=== PATIENT | male | born 1950 | race Caucasian/White ===

== ENCOUNTER → 2016-03-17 | Outpatient (CLI) | payer MEDICARE ==
--- NOTE | 2016-03-17 08:19 | RAD ---
EXAM DESCRIPTION: Right shoulder, two views CLINICAL HISTORY: SHOULDER PAIN. FINDINGS/IMPRESSION: Internal rotation and axillary views shows moderate osteoarthritis of the acromioclavicular joint without separation No advanced osteoarthritis or focal osteochondral lesion of the glenohumeral joint. No fracture or dislocation Normal mineralization. Visualized right lung is clear Electronically signed by: Laron Reddy MD 03/17/2016 08:17
--- NOTE | 2016-05-08 10:47 | RAD ---
EXAM DESCRIPTION: Left shoulder, two views CLINICAL HISTORY: SHOULDER PAIN. FINDINGS/IMPRESSION: Mild acromioclavicular osteoarthritis without separation. Joint space is about 5 mm No advanced glenohumeral osteoarthritis or focal osteochondral lesion. No fracture. Visualized left lung is clear Electronically signed by: Laron Reddy MD 03/17/2016 08:19
== END ==
LOC: RAD 07:36
PROVIDERS: ATTEND Orthopaedic Surgery
DX: M19.012 Primary osteoarthritis, left shoulder (principal); M19.011 Primary osteoarthritis, right shoulder

== ENCOUNTER 2016-05-28 05:51 | Day surgery (SDC) | payer MEDICARE ==
[2016-05-28] MEDS ORDERED: LACTATED RINGERS 1,000 ML ONE (06:23)
[2016-05-28] MEDS ORDERED: PROPOFOL 200 MG/20 ML VIAL IV ONE (07:00)
--- NOTE | 2016-05-28 10:31 | OP ---
DATE OF PROCEDURE: 05/28/16 PREOPERATIVE DIAGNOSIS: 1. History of polyps. 2. Epigastric pain. 3. Heartburn. 4. History of Helicobacter pylori. POSTOPERATIVE DIAGNOSIS: 1. Esophagitis. 2. Gastritis. 3. Diverticulosis. 4. Internal hemorrhoids. 5. Rectal polyp. PROCEDURE: 1. Esophagogastroduodenoscopy plus biopsy. 2. Colonoscopy plus polypectomy. SURGEON: Isauro Rodriguez MD. COMPLICATIONS: None apparent. BLOOD LOSS: None. MEDICATIONS: Monitored anesthesia care. DESCRIPTION OF PROCEDURE: Informed consent was obtained prior to sedation. The preprocedure cardiopulmonary assessment was satisfactory. The patient was placed in the left lateral decubitus position and was sedated. The tip of the Olympus esophagogastroduodenoscope was inserted in the oropharynx and guided under direct visualization through the cricopharyngeus into the esophageal lumen. The esophagus was remarkable for distal esophagitis secondary to reflux. Biopsies were obtained. It was grade B esophagitis. The stomach was examined with direct and retroflexed views. The antrum, body, fundus, cardia and incisura were closely examined. There was some mild antral gastritis. Biopsies were obtained. We will be checking him for H. pylori, which he has evidently had in the past. There are no ulcers in the stomach. The duodenum was examined down to the third portion and there was some minimal bulbar duodenitis. The scope was then removed from the patient. The patient rotated 180 degrees. A digital rectal exam was unremarkable. The tip of the Olympus colonoscope was inserted in the rectum and guided over to the cecum. The cecum was identified by locating the ileocecal valve and appendiceal orifice. The mucosa of the cecum, ascending colon, hepatic flexure, transverse colon, splenic flexure, descending colon and sigmoid colon was closely examined. Direct and retroflexed views of the rectum were obtained. The prep was good. He has internal hemorrhoids. He has sigmoid diverticulosis. He had a 3 mm sessile polyp in the rectum that was removed with a cold snare and recovered. Otherwise , colonoscopy was unremarkable. RECOMMENDATIONS: 1. Followup biopsy and pathology results. 2. With his esophagitis, I think he should be on a daily proton pump inhibitor. 3. Followup with me in six months. #[id number] cc: Errol Polk MD [facility]ITALChad
[2016-05-28 11:26] VITALS: BP 146/92; TEMP 97.3; O2SAT 98
== END 2016-05-28 11:20 | disposition home or self-care (01) ==
LOC: AMB 05:51
PROVIDERS: ATTEND Internal Medicine Gastroenterology
DX: K92.1 Melena (principal); K62.1 Rectal polyp; K57.30 Diverticulosis of large intestine without perforation or abscess without bleeding; K64.8 Other hemorrhoids; K21.0 Gastro-esophageal reflux disease with esophagitis; K29.50 Unspecified chronic gastritis without bleeding; I10 Essential (primary) hypertension; Z86.010 Personal history of colon polyps; Z87.891 Personal history of nicotine dependence; Z79.899 Other long term (current) drug therapy
CPT/HCPCS: 00810; 43239; 45385; 88305; 88342; J3490; J7120

== ENCOUNTER → 2016-08-26 | Outpatient (CLI) | payer MEDICARE | END | disposition home or self-care (01) | LOC: GMAL 10:33 | PROVIDERS: ATTEND Family Medicine | DX: D51.3 Other dietary vitamin B12 deficiency anemia (principal); E55.9 Vitamin D deficiency, unspecified ==

== ENCOUNTER → 2016-11-26 | Outpatient (CLI) | payer MEDICARE | END | disposition home or self-care (01) | LOC: GMAL 10:40 | PROVIDERS: ATTEND Family Medicine | DX: B17.10 Acute hepatitis C without hepatic coma (principal); Z12.5 Encounter for screening for malignant neoplasm of prostate | CPT/HCPCS: 86803; G0103 ==

== ENCOUNTER → 2017-03-31 | Outpatient (CLI) | payer MEDICARE | END | disposition home or self-care (01) | LOC: GMAL 10:57 | PROVIDERS: ATTEND Family Medicine | DX: E55.9 Vitamin D deficiency, unspecified (principal); Z79.899 Other long term (current) drug therapy ==

== ENCOUNTER → 2017-12-24 | Outpatient (CLI) | payer MEDICARE | LOC: GMAL 11:31 | PROVIDERS: ATTEND Family Medicine | DX: D51.3 Other dietary vitamin B12 deficiency anemia (principal); R53.83 Other fatigue; Z12.5 Encounter for screening for malignant neoplasm of prostate | CPT/HCPCS: 82607; 84443; G0103 ==

== ENCOUNTER → 2018-10-19 | Outpatient (CLI) | payer MEDICARE, OTHER ==
--- NOTE | 2018-10-19 17:35 | US ---
EXAM DESCRIPTION: Aorta: Ultrasound. CLINICAL HISTORY: SCREENING FOR CARDIOVASCULAR DISORDER COMPARISON: None. TECHNIQUE: Transcutaneous scanning: Two-dimensional and Doppler modes. FINDINGS: Abdominal aorta diameter - Proximal: 3.1 x 2.8 cm. Mid: 2.7 x 2.5 cm. Distal: 2.3 x 1.8 cm. Common Iliac diameter - Right: 11 mm. Left: 10 mm. Other: Atherosclerotic wall changes.. No para-aortic mass. IMPRESSION: 3.1 cm abdominal aortic aneurysm. Recommend follow-up every 3 years. Reference: J Am Griffin Radiol 2013;10:789-794. Electronically signed by: Srinath Lloyd MD 10/19/2018 5:33 PM CDT
== END ==
LOC: US 09:00
PROVIDERS: ATTEND Family Medicine
DX: K29.70 Gastritis, unspecified, without bleeding (principal); I71.4 Abdominal aortic aneurysm, without rupture; K21.9 Gastro-esophageal reflux disease without esophagitis; J30.9 Allergic rhinitis, unspecified; M12.9 Arthropathy, unspecified; R60.9 Edema, unspecified

== ENCOUNTER → 2018-12-28 | Outpatient (CLI) | payer MEDICARE, OTHER | LOC: GMAL 10:49 | PROVIDERS: ATTEND Family Medicine | DX: D51.3 Other dietary vitamin B12 deficiency anemia (principal); R53.83 Other fatigue; E55.9 Vitamin D deficiency, unspecified; Z12.5 Encounter for screening for malignant neoplasm of prostate; Z79.899 Other long term (current) drug therapy | CPT/HCPCS: 82306; 82607; 84443; G0103 ==

== ENCOUNTER → 2019-04-07 | Outpatient (CLI) | payer MEDICARE ==
--- NOTE | 2019-04-07 14:34 | RAD ---
EXAM DESCRIPTION: Shoulder,Left 2 or More Views CLINICAL HISTORY: 69 years Male, Shoulder pain COMPARISON: Left shoulder radiographs 03/17/2016 TECHNIQUE: 4 view radiograph of the left shoulder. IMPRESSION: No acute displaced fracture. No dislocation. Mild arthrosis of the acromioclavicular joint with no significant undersurface spurring. No diastases. No significant arthrosis of the glenohumeral joint. No radiographically apparent soft tissue abnormality. Electronically signed by: Darvin Robin MD 04/07/2019 2:32 PM [facility]
== END ==
LOC: RAD 08:05
PROVIDERS: ATTEND Orthopaedic Surgery
DX: M19.012 Primary osteoarthritis, left shoulder (principal)

== ENCOUNTER → 2019-04-13 | Outpatient (CLI) | payer MEDICARE ==
--- NOTE | 2019-04-13 11:28 | MRI ---
EXAM DESCRIPTION: MRI left shoulder CLINICAL HISTORY: Rotator cuff syndrome. Shoulder pain COMPARISON: None. TECHNIQUE: Multiplanar, multisequence MR images of the left shoulder FINDINGS: Full-thickness supraspinatus tendon tear. Linear full-thickness defect along the mid tendon between the critical zone and insertion anteroposterior 6 mm mediolateral about 13 mm. Contiguous partial articular and interstitial tear of the mid to posterior supraspinatus tendon. No tendon retraction. Mild muscle volume loss and grade 1 fatty streaking Infraspinatus tendinosis with partial articular and interstitial tear of the anterior tendon critical zone to the insertion. Mild irregularity and edema along the oblique facet greater tuberosity. 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 Partial articular and interstitial tear of the craniocaudal dimension of the tendon. At least 50% partial thickness tear. Muscle volume is normal with grade 1 fatty streaking Long head biceps tendon subluxation over the lesser tuberosity. Tendinosis and interstitial partial tear of the biceps tendon in the bicipital groove and over short segment intra-articular. Degenerative signal in the labral anchor with partial detachment. Thin cleft of fluid undermines the superior labrum. Diffuse increased signal throughout the posterior labrum with fraying of the articular surface and partial detachment, with fluid undermining the craniocaudal dimension of the posterior labrum. Anterior and inferior labrum intact No subchondral marrow abnormality of the glenoid or humeral head. 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 Joint effusion. Osteophytes indent the supraspinatus. Anterior lateral downsloping of the acromion. 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
== END ==
LOC: MRI 09:00
PROVIDERS: ATTEND Orthopaedic Surgery
DX: M75.102 Unspecified rotator cuff tear or rupture of left shoulder, not specified as traumatic (principal); S43.432D Superior glenoid labrum lesion of left shoulder, subsequent encounter; S46.112D Strain of muscle, fascia and tendon of long head of biceps, left arm, subsequent encounter

== ENCOUNTER → 2019-11-10 | Outpatient (CLI) | payer MEDICARE | LOC: GMA CAST 14:47 | PROVIDERS: ATTEND Family Medicine Sports Medicine | DX: R00.2 Palpitations (principal) ==

== ENCOUNTER → 2019-12-14 | Outpatient (CLI) | payer MEDICARE ==
--- NOTE | 2019-12-14 21:29 | CT ---
EXAM DESCRIPTION: Chest w/Contrast CLINICAL HISTORY: 69 years, Male, PALPITATIONS COMPARISON: None TECHNIQUE: Thin-section noncontrast axial CT images are obtained according to our protocol. Reconstructed MPR images are created and reviewed as well. Usual adult dose of nonionic iodinated IV contrast was administered. FINDINGS: Lungs: No consolidating pulmonary infiltrate or groundglass infiltrate. No worrisome pulmonary mass or nodule. Linear scar or small granuloma in the left lower lobe 5 mm. Follow-up as per recommendations below. Mediastinum: Lymph nodes are normal in size. 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 Normal vascular contours. Heart size is normal with no pericardial effusion. Moderate coronary calcification. Chest wall/axilla: No mass or adenopathy. Lower neck/supraclavicular: No mass or adenopathy. Upper abdomen: Multiple calcified stones in the gallbladder. Small cyst in the upper pole of the left kidney measures 2 cm. Coronal and sagittal reformatted images confirm the findings. Chronic wedging in the mid T-spine. IMPRESSION: Gallstones. 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 Left lower lobe nodule probably granuloma 5 mm. Follow-up as per recommendations below. 2017 Fleischner Society Recommendations for Single Solid Lung Nodule Follow-Up based on size (average of long- and short-axis diameters) <6 mm Low-Risk Patient: No routine follow-up <6 mm High-Risk Patient: Optional CT at 12 months This exam was performed according to our departmental dose-optimization program, which includes automated exposure control, adjustment of the mA and/or kV according to patient size and/or use of iterative reconstruction technique. Total DLP equals 928.2 mGycm. Electronically signed by: Neal Licea MD 12/14/2019 9:28 PM CDT
== END ==
LOC: CT 09:00
PROVIDERS: ATTEND Family Medicine
DX: R00.2 Palpitations (principal); R91.1 Solitary pulmonary nodule; K80.20 Calculus of gallbladder without cholecystitis without obstruction; E32.8 Other diseases of thymus

== ENCOUNTER → 2020-01-17 | Outpatient (CLI) | payer MEDICARE | LOC: GMAL 10:34 | PROVIDERS: ATTEND Family Medicine | DX: D51.3 Other dietary vitamin B12 deficiency anemia (principal); E55.9 Vitamin D deficiency, unspecified; Z12.5 Encounter for screening for malignant neoplasm of prostate; Z79.899 Other long term (current) drug therapy | CPT/HCPCS: 82306; 82607; 84443; G0103 ==